=== PATIENT | male | born 2000 | race Caucasian/White ===

== ENCOUNTER 2023-12-01 20:09 | Observation (INO) ==
--- NOTE | 2023-12-01 20:46 | Emergency Department Note ---
History of Present Illness General Chief complaint: Dental/Oral Stated complaint: BLEEDING OUT OF MOUTH, GOT TONSELS OUT Time Seen by Provider: 12/01/23 20:46 History of Present Illness NAME: MADHAVI VERGARA II AGE: 23 SEX: M : 2000 ARRIVES VIA: Walk-In INFORMANT: Patient ED PROVIDER(S): SURESH Drake, Eamon Sen MD The patient is a 23-year-old male who arrives to the emergency department for evaluation of bleeding from his tonsillectomy site. He reports he had the procedure 13 days ago on November 18. He does report he did not have any bleeding until yesterday, which he had a 5-minute span of bleeding. He reports today the bleeding began 45 minutes prior to his arrival. He denies swallowing any blood, he is spitting the blood into a cup, and states the amount is not copious. The patient reports his tonsillectomy was done in [facility], he returned here for school starting this week. He denies any history of anticoagulant use or bleeding or clotting disorders. He denies fever, throat pain or other concerning signs or symptoms. Home Medications Medication Instructions Recorded Confirmed Type No Known Home Medications 12/01/23 12/01/23 History acetaminophen 500 mg tablet 500 mg PO Q4H PRN fever or pain 12/02/23 Rx (Tylenol Extra Strength) #20 tabs Allergies Allergy/AdvReac Type Severity Reaction Status Date / Time tree nut Allergy Intermediate "STUFFY" Verified 07/16/23 00:15 THROAT Past Med/Surg History Medical History No significant past medical history Surgical History No significant past surgical history Social History Smoking Status: Never smoker Second Hand Exposure: No; Do You Dip or Chew Tobacco: No; Hx Alcohol Use: Yes Alcohol type: beer Hx Substance Use: No Preferred Language: Ugandan Communication Ability: Effective Electromechanisms Design Drafter Required: No Beliefs That Will Affect Care: None marital status: Single Current Living Situation: Parent and Other Current Living Situation Comment: pt is currently a student at [employer] current occupational status: student Feels Safe at Home: Yes Assistive Devices: None Physical Exam Vital Signs Vital Signs - 24 hr 12/01/23 20:36 12/01/23 20:56 12/01/23 21:36 Temperature 36.5 C Temperature Source Oral Pulse Rate 96 H 94 H Pulse Rate [Apical] Respiratory Rate 16 22 Respiratory Effort / Characteristics Non-Labored Respiratory Depth Normal Respiratory Pattern Regular Blood Pressure 144/97 H Blood Pressure [Right Arm] Blood Pressure Mean 112 Blood Pressure Mean [Right Arm] Pulse Oximetry 97 100 Oxygen Delivery Method Room Air Room Air Sepsis Recent Fever Within 48 Hours No Sepsis New/Unexplained Change in Mental Status No Sepsis Action Taken by Nursing No Action Required 12/01/23 21:36 12/01/23 21:58 12/01/23 23:07 Temperature Temperature Source Pulse Rate 108 H 82 Pulse Rate [Apical] 82 Respiratory Rate 19 22 Respiratory Effort / Characteristics Respiratory Depth Respiratory Pattern Blood Pressure Blood Pressure [Right Arm] 122/73 Blood Pressure Mean Blood Pressure Mean [Right Arm] 89 Pulse Oximetry 98 98 Oxygen Delivery Method Room Air Sepsis Recent Fever Within 48 Hours Sepsis New/Unexplained Change in Mental Status Sepsis Action Taken by Nursing VITALS: Vitals are noted on the nurse's note and reviewed by myself. Vital signs stable. GENERAL: 23-year-old man, in no acute distress, nondiaphoretic, well-developed well-nourished. SKIN: The skin was without rashes, erythema, edema, or bruising. HEAD: Normocephalic atraumatic. EYES: Pupils equal round and reactive to light and accommodation. Conjunctivae without injection, sclerae without icterus. Extraocular movements intact. MOUTH: Mucous membranes moist. Tonsils are not present, granulation tissue present bilaterally in the posterior pharynx. Some bleeding is noted to the left posterior pharynx with some clots present. Uvula midline. NECK: Supple without nuchal rigidity. No lymphadenopathy. No thyromegaly. Cervical spine is nontender. No JVD. HEART: Regular rate and rhythm without murmurs gallops or rubs. LUNGS: Clear to auscultation bilaterally without wheezes, rales or rhonchi. No dullness to percussion. No retractions or accessory muscle use. NEURO: Patient was alert and oriented to person place and time. Normal sensation to light and sharp touch. Deep tendon reflexes 2+ throughout. No focal neurological deficits. Course Consultations Consultation #1: Dr. Lyn consulted from ENT, recommends gargling 1/2 cup of 50/50 mix hydrogen peroxide and water for 30 seconds at a time to stop bleeding. He will come in and evaluate the patient. Time: 21:46 Administered Medications Discontinued Medications Fentanyl Citrate (Fentanyl Citrate Pf 100 Mcg/2 Ml Vial) 50 mcg IV Q5M PRN PRN Reason: PACU Use Only-Pain Stop: 12/02/23 07:18 Last Admin: 12/02/23 00:32 Dose: 50 mcg Documented By: MARY Fentanyl Citrate (Fentanyl Citrate Pf 100 Mcg/2 Ml Vial) Confirm Administered Dose 100 mcg .ROUTE .STK-MED ONE Stop: 12/02/23 00:35 Last Admin: 12/02/23 01:36 Dose: Not Given Documented By: GLORIA Lactated Ringer's (Lr) 1,000 mls @ 50 mls/hr IV .Q20H YOLY Stop: 01/01/24 00:44 Last Infusion: 12/02/23 07:58 Dose: Infused Documented By: Admin: 12/02/23 01:45 Dose: 50 mls/hr Documented By: GLORIA Ondansetron HCl (Ondansetron Inj 2 Mg/Ml 2 Ml Vial) Confirm Administered Dose 4 mg .ROUTE .STK-MED ONE Stop: 12/01/23 21:36 Last Admin: 12/01/23 21:37 Dose: 4 mg Documented By: VERONICA Tranexamic Acid (Txa 10% Non-Iv Routes 100 Mg/Ml Vial) 500 mg NEB ONE ONE Stop: 12/01/23 20:52 Last Admin: 12/01/23 21:00 Dose: 500 mg Documented By: SHAWNA Medical Decision Making Differential Diagnosis Viral syndrome, tonsillitis, streptococcal pharyngitis, mononucleosis, peritonsillar abscess, retropharyngeal abscess, otitis, pneumonia, influenza, as well as other pathologies. Medical Records Attestation: I reviewed the patient's medical records. Home Medications Current Medication List: was personally reviewed by me Laboratory Data Attestation: I reviewed the patient's lab results. No leukocytosis, stable hemoglobin hematocrit, no electrolyte abnormalities. 12/01/23 21:01 12/01/23 21:01 Lab Results 12/01/23 Range/Units 21:01 WBC 9.79 (4.8-10.8) K/ul RBC 4.76 (4.70-6.10) M/uL Hgb 13.9 L (14.0-18.0) g/dl Hct 39.2 L (42.0-52.0) % MCV 82.4 (80.0-100.0) fL MCH 29.2 (25.0-34.0) pg MCHC 35.5 (32.0-36.0) g/dL RDW Std Deviation 36.0 L (36.4-46.3) fL RDW Coeff of Edward 11.9 (11.5-14.5) % Plt Count 373 (130-400) K/uL MPV 8.3 L (9.4-12.4) fL Immature Gran % (Auto) 0.8 % Neut % (Auto) 61.4 % Lymph % (Auto) 30.7 % Nash % (Auto) 4.1 % Eos % (Auto) 2.6 % Baso % (Auto) 0.4 % Neut # (Auto) 6.01 (1.40-6.50) K/uL Lymph # (Auto) 3.01 (1.20-3.40) K/uL Nash # (Auto) 0.40 (0.11-0.59) K/uL Eos # (Auto) 0.25 (0.00-0.50) K/uL Baso # (Auto) 0.04 (0.00-0.20) K/uL Immature Gran # (Auto) 0.08 (0.01-0.20) K/uL PT 11.2 (9.0-12.0) Seconds INR 1.0 (0.9-1.1) APTT 28 (21-31) Seconds PTT Ratio 1.0 Sodium 137 (136-145) mmol/L Potassium 3.9 (3.5-5.1) mmol/L Chloride 104 (98-107) mmol/L Carbon Dioxide 24 (21-32) mmol/L Anion Gap 9 (3-11) BUN 31 H (6-23) mg/dl Creatinine 0.72 (0.6-1.4) mg/dl Est Cr Clr Drug Dosing 188.7 ml/min Est GFR ( Amer) > 150.0 ml/min Est GFR (Non-Af Amer) 133.3 ml/min BUN/Creatinine Ratio 43.1 H (10-20) Glucose 96 (70-99(Fasting)) mg/dl Calcium 9.1 (8.6-10.3) mg/dl Total Bilirubin 0.2 (0.2-1.0) mg/dl AST 14 (13-39) U/L ALT 17 (7-52) U/L Alkaline Phosphatase 69 (34-104) U/L Total Protein 7.9 (6.0-8.3) gm/dl Albumin 4.6 (3.4-5.0) gm/dl Globulin 3.3 (2.5-4.0) gm/dl Albumin/Globulin Ratio 1.4 (0.9-2) Blood Type B Positive Antibody Screen NEGATIVE [facility] Narrative The patient is a well-appearing 23-year-old male who arrives to the emergency department for evaluation of bleeding status post tonsillectomy. The patient had minimal bleeding upon initial assessment from the left posterior pharyngeal space where the tonsillectomy was performed. There is granulation tissue bilaterally, however on the left side there is clotting and active bleeding present. There is no airway edema, the patient is able to clear his own secretions. The patient was provided with a TXA nebulizer treatment to assist with cessation of bleeding, however this did not help. The patient did appear to have worsening of his hemorrhage, therefore ENT was contacted. Dr. Lyn, recommended a 50/50 mixture of hydrogen peroxide and water for the patient to gargle, this did assist with the bleeding. Dr. Lyn did recommend the patient should be evaluated in the OR, to control any bleeding still present. The patient was transported to the OR by nursing staff, Dr. Lyn took over the care of the patient at this time. Impression & Plan Post tonsillectomy secondary hemorrhage Discharge Plan Visit Data Chief Complaint: Dental/Oral Stated Complaint: BLEEDING OUT OF MOUTH, GOT TONSELS OUT ED Provider: Eamon Sen ED Midlevel Provider: Doreen Don Discharge Problem: Post tonsillectomy secondary hemorrhage Patient Disposition: Admitted As Inpatient Discharge Instructions Interventions: ED Discharge Assessment Last Done: 12/01/23 23:07
[2023-12-01] MEDS ORDERED: TXA 10% Non-IV Routes 100 MG/ML VIAL NEB ONE (20:51)
[2023-12-01 21:35] LABS: Basophils # (auto) 0.04 K/uL (0.00-0.20); Basophils % (auto) 0.4 %; Eosinophils # (auto) 0.25 K/uL (0.00-0.50); Eosinophils % (auto) 2.6 %; Hematocrit (blood only) 39.2 % (42.0-52.0); Hemoglobin 13.9 g/dl (14.0-18.0); Immature Granulocytes # (auto) 0.08 K/uL (0.01-0.20); Immature Granulocytes % (auto) 0.8 %; Lymphocytes # (auto) 3.01 K/uL (1.20-3.40); Lymphocytes % (auto) 30.7 %; Mean Corpuscular Hemoglobin 29.2 pg (25.0-34.0); Mean Corpuscular Hgb Conc 35.5 g/dL (32.0-36.0); Mean Corpuscular Volume 82.4 fL (80.0-100.0); Mean Platelet Volume 8.3 fL (9.4-12.4); Monocytes % (auto) 4.1 %; Neutrophils # (auto) 6.01 K/uL (1.40-6.50); Neutrophils % (auto) 61.4 %; Platelet Count 373 K/uL (130-400); RDW Coefficient of Variation 11.9 % (11.5-14.5); Red Blood Count 4.76 M/uL (4.70-6.10); White Blood Count 9.79 K/ul (4.8-10.8)
[2023-12-01] MEDS ORDERED: ONDANSETRON INJ 2 MG/ML 2 ML VIAL ONE ×2 (21:35→23:45)
[2023-12-01 21:37] LABS: Alanine Aminotransferase 17 U/L (7-52); Albumin Globulin Ratio 1.4 (0.9-2); Albumin Level 4.6 gm/dl (3.4-5.0); Alkaline Phosphatase 69 U/L (34-104); Anion Gap 9 (3-11); Aspartate Aminotransferase 14 U/L (13-39); BUN Creatinine Ratio 43.1 (10-20); Bilirubin,Total 0.2 mg/dl (0.2-1.0); Blood Urea Nitrogen 31 mg/dl (6-23); Calcium 9.1 mg/dl (8.6-10.3); Carbon Dioxide 24 mmol/L (21-32); Chloride 104 mmol/L (98-107); Creatinine Clr Calc Pharmacy 188.7 ml/min; Est GFR (African American) > 150.0 ml/min; Est GFR (Non-African American) 133.3 ml/min; Globulin 3.3 gm/dl (2.5-4.0); Glucose 96 mg/dl (70-99(Fasting)); Potassium 3.9 mmol/L (3.5-5.1); Sodium 137 mmol/L (136-145); Total Protein 7.9 gm/dl (6.0-8.3)
[2023-12-01 21:49] LABS: Partial Thromboplastin Time 28 Seconds (21-31); Prothrombin Time 11.2 Seconds (9.0-12.0)
[2023-12-01] MEDS ORDERED: SUCCINYLCHOLINE 100MG/5ML SYR IV ONE (22:57)
[2023-12-01] MEDS ORDERED: PROPOFOL IV EMULSION 10 MG/ML 20 ML VIAL IV ONE ×2 (22:57→23:01)
[2023-12-01] MEDS ORDERED: fentaNYL citrate PF 100 MCG/2 ML VIAL ONE ×2 (22:57→23:50)
--- NOTE | 2023-12-01 23:09 | Anesthesiology Consultation ---
Date of Service December 01, 2023 Assessment & Plan Chart Review Chart Review: Acceptable Risk for Surgery and Patient NOT seen in Pre Admission Testing History Surgery Operation Date: 12/01/23 23:00 Proposed Procedures p Tonsillectomy Adenoidectomy - Harsh Lyn MD Height/Weight Height: 6 ft 2 in Weight: 87 kg Allergies Allergy/AdvReac Type Severity Reaction Status Date / Time tree nut Allergy Intermediate "STUFFY" Verified 07/16/23 00:15 THROAT Medications Home Medications Medication Instructions Recorded Confirmed Last Taken No Known Home Medications 12/01/23 12/01/23 Unknown Past Medical History Medical History No significant past medical history Past Surgical History Surgical History No significant past surgical history Social History Smoking Status: Never smoker Physical Exam Vital Signs Last Vital Signs Temp 36.5 C 12/01/23 20:36 Pulse 82 12/01/23 21:58 Resp 19 12/01/23 21:58 BP 122/73 12/01/23 21:58 Pulse Ox 98 12/01/23 21:58 O2 Del Method Room Air 12/01/23 20:56 Testing Laboratory Results 12/01/23 21:01 12/01/23 21:01 PT 11.2 Seconds (9.0-12.0) 12/01/23 21:01 INR 1.0 (0.9-1.1) 12/01/23 21:01 APTT 28 Seconds (21-31) 12/01/23 21:01 Blood Type B Positive 12/01/23 21:01 Antibody Screen NEGATIVE 12/01/23 21:01
--- NOTE | 2023-12-01 23:12 | History & Physical Report ---
Date of Service December 01, 2023 Assessment & Plan (1) Post tonsillectomy secondary hemorrhage: Plan: 1. NPO 2. To surgery for control of bleeding. Present on Admission?: Yes History of Present Illness Chief Complaint: Post-Tonsillectomy Bleeding. 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 Patient returned to [facility] [employer] [facility] to start winter studies. He had a brief bleeding show yesterday that lasted only 5 minutes per patient recollection, and then two more this morning before the bleeding became significant and wasn't stopping - so he came to [facility] ED for evaluation. His last PO intake was at 4:30 PM today. He is still having active bleeding, albeit LESS brisk that his presenting onset. Allergies Allergy/AdvReac Type Severity Reaction Status Date / Time tree nut Allergy Intermediate "STUFFY" Verified 07/16/23 00:15 THROAT Home Medications Medication Instructions Recorded Confirmed Type No Known Home Medications 12/01/23 12/01/23 History Past Med/Surg History Medical History No significant past medical history Surgical History No significant past surgical history Social History Smoking Status: Never smoker Preferred Language: Djiboutian marital status: Single current occupational status: student Feels Safe at Home: Yes Review of Systems Review of Systems: The patient has NO vertigo, NO nystagmus The patient has NO stridor, NO wheezing Physical Exam Physical Exam: HEAD: Normocephalic FACE: NO Facial Weakness EYES: EOMI PERRL Ears: External Ears - Normal Ext Aud. Canals - CLEAR Bilateral Tympanic Membranes - Normal Bilateral Middle Ears - CLEAR NOSE: Septum midline Turbinates Normal NO Polyps. Mouth: Normal FOM / Normal Tongue No oral lesions. Normal oropharynx. Oropharynx: Soft palate normal - NO swelling. Uvula midline. - CLOT and Active bleeding from the LEFT Tonsil fossa. - Dark Eschar in the RIGHT Tonsil fossa. LUNGS: Clear to auscultation bilaterally. Cardio-Vasc: Regular Rate & Rhythm NO murmurs. Abdomen: Soft, Flat - No masses. Bowel Sounds present. Extrem: Normal ROM. No peripheral edema. Results & Data Results & Data Vital Signs (Past 12 Hours) Vital Signs Temp Pulse Pulse Resp BP BP Pulse Ox 12/01/23 21:58 82 19 122/73 98 12/01/23 21:36 108 H 12/01/23 21:36 94 H 22 100 12/01/23 20:56 12/01/23 20:36 36.5 C 96 H 16 144/97 H 97 O2 Del Method 12/01/23 21:58 12/01/23 21:36 12/01/23 21:36 12/01/23 20:56 Room Air 12/01/23 20:36 Room Air Laboratory Results RBC = 4.76 WBC = 9.8 Hgb = 13.9 Hct = 39.2 % Code Status & VTE Plan VTE Prophylaxis Plan VTE Prophylaxis will be ordered: No Reason for no VTE drug order: Treatment not indicated (Patient with Active Bleeding. ) Reason for no VTE mechanical prophylaxis: Contraindicated (Per ACS)
[2023-12-01] MEDS ORDERED: HYDROmorphone INJ 2 MG/ML SYR/VIAL IV PRN (23:18)
[2023-12-01] MEDS ORDERED: ePHEDrine sulfate 50 MG/ML AMP IV PRN (23:18)
[2023-12-01] MEDS ORDERED: fentaNYL citrate PF 100 MCG/2 ML VIAL IV PRN (23:18)
[2023-12-01] MEDS ORDERED: ATROPINE SULFATE 0.1 MG/ML 10ML SYR IV PRN (23:18)
[2023-12-01] MEDS ORDERED: ONDANSETRON INJ 2 MG/ML 2 ML VIAL IV PRN (23:18)
[2023-12-01] MEDS ORDERED: DEXAMETHASONE SOD INJ 4 MG/ML VIAL ONE ×2 (23:45)
[2023-12-01] MEDS ORDERED: PHENYLEPHRINE 100MCG/ML 10ML SYR IV ONE (23:46)
[2023-12-01] MEDS ORDERED: SUGAMMADEX SODIUM 200 MG/2 ML VIAL IV ONE (23:53)
[2023-12-01] MEDS ORDERED: ROCURONIUM BROMIDE 10 MG/ML 5 ML VIAL IV ONE (23:55)
[2023-12-02] MEDS ORDERED: ePHEDrine sulfate 50 MG/5 ML SYR ONE (00:10)
[2023-12-02] MEDS ORDERED: ACETAMINOPHEN 500 MG TAB PO PRN (00:31)
[2023-12-02] MEDS ORDERED: ACETAMINOPHEN W/CODEINE #3 1 TAB PO PRN (00:31)
[2023-12-02] MEDS ORDERED: fentaNYL citrate PF 100 MCG/2 ML VIAL ONE (00:34)
[2023-12-02] MEDS ORDERED: HYDROCODONE/ACETAMOPHEN 5/325MG TAB PO PRN (00:37)
--- NOTE | 2023-12-02 00:39 | Anesthesiology Progress Note ---
Date of Service December 02, 2023 Anesthesia Post Procedure Vital Signs Vital Signs: Temp Pulse Pulse Resp BP BP Pulse Ox 12/01/23 23:07 82 22 98 12/01/23 21:58 82 19 122/73 98 12/01/23 21:36 108 H 12/01/23 21:36 94 H 22 100 12/01/23 20:56 12/01/23 20:36 36.5 C 96 H 16 144/97 H 97 O2 Del Method 12/01/23 23:07 Room Air 12/01/23 21:58 12/01/23 21:36 12/01/23 21:36 12/01/23 20:56 Room Air 12/01/23 20:36 Room Air Transfer of Care Handoff Completed per policy Notes Mental Status: alert / awake / arousable and participated in evaluation Patient Amnestic to Procedure: Yes Nausea / Vomiting: adequately controlled Pain: adequately controlled Airway Patency, RR, SpO2: stable & adequate BP & HR: stable & adequate Hydration State: stable & adequate Anesthetic Complications: no major complications apparent and Pt Satisfied with anesthetic care
[2023-12-02] MEDS ORDERED: LACTATED RINGER'S 1,000 ML IV SCH (00:45)
--- NOTE | 2023-12-02 00:45 | Operative Report ---
Post Operative Report Pre & Post Diagnosis Operation Date: 12/01/23 23:00 Pre-Op Diagnosis: Post tonsillectomy secondary hemorrhage Post-Op Diagnosis: Post tonsillectomy secondary hemorrhage I identified the patient and participated in the time-out.: Yes Procedure Operation Date: 12/01/23 23:00 Actual Procedures p Control of Post-Tonsillectomy Bleed(Not Applicable) - Harsh Lyn MD Surgeon Harsh Lyn MD Pest Control Worker Helper None Estimated Blood Loss 72 Findings Consistent with Post-Op Diagnosis RIGHT tonsil Fossa Arterial Bleeding. Fluids 1200 ml Lactated Ringers Specimens None. Drains None. Anesthesia Type General Complications None. Disposition Accompanied Patient To Recovery: Yes Indications Overnight Observation for any bleeding. Description of Procedure Control of Post tonsillectomy bleeding I attest to the content of the Intraoperative Record and any orders documented therein. Any exceptions are noted below.
[2023-12-02 04:20] VITALS: PULSE 64; RESP 16; O2SAT 98
--- NOTE | 2023-12-02 08:49 | Ears,Nose,Throat Progress Note ---
Date of Service December 02, 2023 Assessment & Plan (1) Post tonsillectomy secondary hemorrhage: Plan: PLAN: 1. Discharge to Home today. NO additional medications required. 2. May resume usual diet. 3. Home / School Rest the remainder of this week and may resume his usual schedules next week. 4. Patient follow-up only as needed. Admission and Anticipated Discharge Date Admission Date: December 01, 2023 Subjective Patient taken to surgery early hours this am for control of post-tonsillectomy bleeding. Physical Exam Physical Exam: Patient is Alert - sitting up in bed. Has finished breakfast this AM NO bleeding since surgery. EXAM: Soft palate without swelling. Uvula midline - without swelling. Tonsil Fossae: LEFT is CLEAN - NO clots. NO active bleeding. Minor Eschar / Fibrin deposits in BOTH tonsil fossae. IMP: Control of Post-Tonsillectomy bleed successful - which was coming from the LEFT side. PLAN: 1. Discharge to Home today. NO additional medications required. 2. May resume usual diet. 3. Home / School Rest the remainder of this week and may resume his usual schedules next week. 4. Patient follow-up only as needed. Results & Data Vital Signs (Past 12 Hours) Vital Signs Temp Pulse Pulse Pulse Resp BP Pulse Ox 12/02/23 04:19 36.3 C L 64 16 102/63 98 12/02/23 03:15 36.2 C L 73 19 115/62 96 12/02/23 02:14 36.6 C 81 18 139/62 97 12/02/23 01:45 36.4 C L 86 18 119/72 96 12/02/23 01:15 12/02/23 01:15 36.3 C L 84 17 118/51 L 97 12/02/23 01:15 36.3 C L 84 17 118/51 L 97 12/02/23 00:57 36.9 C 88 20 124/72 97 12/02/23 00:47 36.9 C 90 20 133/82 97 12/02/23 00:27 36.5 C 93 H 18 145/84 H 98 12/02/23 00:27 36.5 C 85 22 128/66 98 12/01/23 23:07 82 22 98 12/01/23 21:58 82 19 122/73 98 01/15/24 21:36 108 H 12/01/23 21:36 94 H 22 100 12/01/23 20:56 O2 Del Method 12/02/23 04:19 Room Air 12/02/23 03:15 Room Air 12/02/23 02:14 Room Air 12/02/23 01:45 Room Air 12/02/23 01:15 Room Air 12/02/23 01:15 Room Air 12/02/23 01:15 Room Air 12/02/23 00:57 Room Air 12/02/23 00:47 Room Air 12/02/23 00:27 Room Air 12/02/23 00:27 Room Air 12/01/23 23:07 Room Air 12/01/23 21:58 12/01/23 21:36 12/01/23 21:36 12/01/23 20:56 Room Air
--- NOTE | 2023-12-02 09:47 | Discharge Summary ---
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 Patient returned to [employer] to start winter studies. He had a brief bleeding show yesterday that lasted only 5 minutes per patient recollection, and then two more this morning before the bleeding became significant and wasn't stopping - so he came to [facility] for evaluation. His last PO intake was at 4:30 PM today. He is still having active bleeding, albeit LESS brisk that his presenting onset. Admission Exam (Per Admitting) Constitutional WD/WN, vitals as above Eyes PERRL, conjunctivae normal, anicteric sclerae ENMT Nose: no external nose abnormality Mouth: no oropharynx abnormality, no oral mucosal abnormality and no loose teeth Neck trachea midline, no thyromegaly Respiratory normal respiratory effort, lungs clear to auscultation Cardiovascular RRR, no murmur, no edema Gastrointestinal (Abdomen) normal bowel sounds, soft, nontender, no hepatosplenomegaly Discharge Data Consultations 12/01/23 22:52 ED Decision to Admit Stat Procedures Performed Operation Date: 12/01/23 23:00 Actual Procedures p Control of Post-Tonsillectomy Bleed(Not Applicable) - Harsh Lyn MD Hospital Course (1) Post tonsillectomy secondary hemorrhage: PLAN: 1. Discharge to Home today. NO additional medications required. 2. May resume usual diet. 3. Home / School Rest the remainder of this week and may resume his usual schedules next week. 4. Patient follow-up only as needed. Discharge Instructions May resume usual diet. Home / School Rest the remainder of this week and may resume his usual schedules next week. Patient follow-up only as needed Coding Level of Care Code 91137 IN/OBS DISCH 30 MIN/LESS Diagnoses Post tonsillectomy secondary hemorrhage J95.830
[2023-12-02 09:51] VITALS: BP 117/65; TEMP 97.5
--- NOTE | 2023-12-05 13:18 | Operative Report ---
PG Post Operative Report Pre & Post Diagnosis Operation Date: 12/01/23 23:00 Pre-Op Diagnosis: Post tonsillectomy secondary hemorrhage Post-Op Diagnosis: Post tonsillectomy secondary hemorrhage I identified the patient and participated in the time-out.: Yes Procedure Operation Date: 12/01/23 23:00 Actual Procedures: Control of Post-Tonsillectomy Bleed - LEFT - Harsh Lyn MD Surgeon Harsh Lyn MD, FACS Percussion Instrument Tuner None Estimated Blood Loss 72 Findings Consistent with Post-Op Diagnosis LEFT Tonsil Fossa arterial bleeder. Fluids 1200 ml Lactated Ringers Solution Specimens None. Drains None. Anesthesia Type General Complications None. Disposition Accompanied Patient To Recovery: Yes Indications Active bleeding on presentation in the Emergency Department. Description of Procedure The patient was taken to the Operating Room urgently. Informed consent obtained. Surgical Safety time-out completed with the entire operating team. Agree with general anesthesia was then induced. After safe assessable orotracheal intubation the endotracheal tube was secured at the midline lower lip and the McIvor mouthgag was then carefully inserted for exposure. There is still active bleeding in the oropharynx which was suctioned clear. Old coagulum was removed which also had evidence of Vicryl sutures from his previous tonsillectomy surgery done in [facility]. On careful inspection there was active arterial bleeding from the left mid tonsil fossa from the exposed artery. A 4-0 chromic suture on an RB1 needle was then used to do a [id number] tie around the bleeding artery. This tied off the bleeding site and secured good hemostasis. There was some small oozing of blood from the superior tonsillar fossa's bilaterally and this was easily controlled with suction cautery set at prior level 18. The oral cavity was then suctioned clear and irrigated with normal saline to assure there is no further bleeding. The nasopharynx was also inspected and clear. A [place] sump tube was passed easily down to the gastric cavity and the gastric cavity secretions were evacuated. The McIvor mouthgag was then released for approximately 2 minutes and then reopened to assure that there was no further active bleeding. Perfect hemostasis not achieved the McIvor mouthgag was then removed. The patient is a reverse anesthesia. He was extubated in the operating room and transferred to the [facility] and then taken to the postanesthesia care unit in stable condition. I attest to the content of the Intraoperative Record and any orders documented therein. Any exceptions are noted below.
== END 2023-12-02 10:15 | disposition home or self-care (01) ==
LOC: ED 20:09 → OR 23:05 → 3N 23:05 → OR 23:07
DX: Y83.8 Other surgical procedures as the cause of abnormal reaction of the patient, or of later complication, without mention of misadventure at the time of the procedure; J95.830 Postprocedural hemorrhage of a respiratory system organ or structure following a respiratory system procedure